=== PATIENT | female | born 1975 | race Caucasian/White ===

== ENCOUNTER 2021-03-16 15:40 | Emergency (ER) | payer BC ==
--- NOTE | 2021-03-16 17:17 | RAD REPORT ---
EXAM DESCRIPTION: RAD - Chest Pa And Lat (2 Views) - 03/16/2021 5:12 pm CLINICAL HISTORY: COUGH Chest pain. COMPARISON: No comparisons FINDINGS: Moderate bilateral pulmonary opacities are present likely representing pulmonary infection / COVID pneumonia. The heart is normal in size. No displaced fractures.
--- NOTE | 2021-03-16 21:31 | ER ---
Nurse's Notes [facility] Name: Radha Redding Age: 46 yrs Sex: Female : 1975 Arrival Date: 03/16/2021 Time: 15:43 Bed External Waiting Private MD: Diagnosis: Presentation: 03/16 16:39 Chief complaint: Spouse and/or significant other states: SOB, cough, headache, body kg aches x 4 days. Pt did at home test two weeks ago and was COVID +. Coronavirus screen: Vaccine status: Patient reports being unvaccinated. Client denies travel out of the [place] in the last 14 days. At this time, unable to obtain information related to travel outside the [place] cough unrelated to allergies, difficulty breathing, Client presents with at least one sign or symptom that may indicate coronavirus-19. Standard/surgical mask placed on the client. Provider contacted for isolation considerations. Client reports previous positive COVID test result. Date of collection: March 06, 2021. Ebola Screen: Patient negative for fever greater than or equal to 101.5 degrees Fahrenheit, and additional compatible Ebola Virus Disease symptoms Patient denies exposure to infectious person. Patient denies travel to an Ebola-affected area in the 21 days before illness onset. Initial Sepsis Screen: Does the patient meet any 2 criteria? Yes No. Patient's initial sepsis screen is negative. Does the patient have a suspected source of infection? Yes: Productive cough/pneumonia. Risk Assessment: Do you want to hurt yourself or someone else? Patient reports no desire to harm self or others. Onset of symptoms was March 13, 2021. 16:39 Method Of Arrival: Ambulatory kg 16:39 Acuity: WINTER 3 kg Triage Assessment: 16:45 General: Appears in no apparent distress. Behavior is calm, cooperative, appropriate kg for age, quiet. Pain: Complains of pain in Generalized. Cardiovascular:. Historical: - Allergies: 16:45 No Known Allergies; kg - Home Meds: 16:45 Crestor Oral once daily [Active]; Metformin Oral 2 times per day [Active]; sertraline kg Oral [Active]; - PMHx: 16:45 depressive disorder; Hypercholesterolemia; NIDDM; kg - PSHx: 16:45 section; Cholecystectomy; ovaries removed; kg - Immunization history:: Adult Immunizations up to date, Client reports having NOT received the Covid vaccine. - Social history:: Smoking status: Patient denies any tobacco usage or history of. Vital Signs: 16:39 BP 129 / 79; Pulse 97; Resp 21; Temp 97.2(TE); Pulse Ox 91% on R/A; Weight 87.09 kg; kg Height 5 ft. 1 in. (154.94 cm); Pain 5/10; 16:39 Body Mass Index 36.28 (87.09 kg, 154.94 cm) kg ED Course: 15:43 Patient arrived in ED. mr 16:43 Triage completed. kg 17:11 XRAY Chest Pa And Lat (2 Views) In Process Unspecified. EDMS Administered Medications: No medications were administered Outcome: 21:30 Patient left the ED. kg Signatures: Dispatcher [employer] EDMS Lubna Jaffe PrimitivoElzbieta, RN RN kg
[2021-03-16 21:39] VITALS: BP 129/79; TEMP 97.2; O2SAT 91
== END 2021-03-16 21:30 | disposition left against medical advice (07) ==
LOC: ER 15:40
DX: Z53.21 Procedure and treatment not carried out due to patient leaving prior to being seen by health care provider (principal)
CPT/HCPCS: 71046; 99282